=== PATIENT | female | born 1970 | race African-American/Black ===

== ENCOUNTER 2018-08-28 14:58 | Outpatient (CLI) | payer BC ==
--- NOTE | 2018-08-28 15:49 | Mammography Report ---
Bilateral mammogram: No previous studies are available. CAD study utilized. Findings: Bilateral dense breast parenchyma. Focal asymmetry measuring 1 cm in diameter inner posterior right breast dated focal dense asymmetry made posterior left breast. No microcalcifications. Focal asymmetry upper mid right breast. Normal axilla. Impression: Focal asymmetry is like the left breast. Comparison with previous studies is recommended. If previous studies of April the spot compression and sonograph examination advised. BI-RADS CATEGORY: 0 = Needs additional imaging evaluation ACR BI-RADS MAMMOGRAPHIC CODES: 0 = Needs additional imaging evaluation; 1 = Negative; 2 = Benign; 3 = Probably benign; 4 = Suspicious; 5 = Malignant; 6 = Known biopsy-proven malignancy COMMENT: 1. Dense breast tissue, i.e., adenosis, fibrocystic changes, etc., may obscure an underlying neoplasm. 2. Approximately 10% of cancers are not detected with mammography. 3. A negative mammography report should not delay biopsy if a clinically suspicious mass is present. COMMENT: Patient follow-up letters are generated in [employer]. The
== END 2018-08-28 14:59 | disposition home or self-care (01) ==
LOC: MAMMO 14:58
PROVIDERS: ATTEND Internal Medicine
DX: Z12.31 Encounter for screening mammogram for malignant neoplasm of breast (principal)
CPT/HCPCS: 77067

== ENCOUNTER 2018-09-21 14:45 | Outpatient (CLI) | payer BC ==
--- NOTE | 2018-09-21 15:19 | Mammography Report ---
BILATERAL DIGITAL DIAGNOSTIC MAMMOGRAM : 09/21/18 14:45:00 CLINICAL: Recalled for bilateral asymmetries. COMPARISON:09/25/18 screening FINDINGS: Additional bilateral mammographic views were performed and are negative. IMPRESSION: Negative Mammogram. BI-RADS CATEGORY: 1 -- Negative RECOMMENDATION: Routine mammographic screening in one year. ACR BI-RADS MAMMOGRAPHIC CODES: 0 = Needs additional imaging evaluation; 1 = Negative; 2 = Benign; 3 = Probably benign; 4 = Suspicious; 5 = Malignant; 6 = Known biopsy-proven malignancy COMMENT: 1. Dense breast tissue, i.e., adenosis, fibrocystic changes, etc., may obscure an underlying neoplasm. 2. Approximately 10% of cancers are not detected with mammography. 3. A negative mammography report should not delay biopsy if a clinically suspicious mass is present. COMMENT: Patient follow-up letters are generated via our [employer] application.
== END 2018-09-21 14:46 | disposition home or self-care (01) ==
LOC: MAMMO 14:45
PROVIDERS: ATTEND Internal Medicine
DX: R92.8 Other abnormal and inconclusive findings on diagnostic imaging of breast (principal)
CPT/HCPCS: 77066

== ENCOUNTER 2019-09-16 11:17 | Emergency (ER) | payer BC ==
[2019-09-16] MEDS ORDERED: dexAMETHasone 20 MG/5 ML VIAL IV ONE (12:13)
[2019-09-16] MEDS ORDERED: SODIUM CHLORIDE 0.9% 1000 ML 1,000 ML IV ONE (12:13)
[2019-09-16] MEDS ORDERED: diphenhydrAMINE 50 MG/ML VIAL IV ONE ×2 (12:13→14:03)
[2019-09-16] MEDS ORDERED: FAMOTIDINE 20 MG/2 ML INJ IV ONE (12:13)
--- NOTE | 2019-09-16 12:13 | Emergency Department Report ---
Blank Doc - Documentation Documentation: 49-year-old female that presents with generlized rash and itching. This initial assessment/diagnostic orders/clinical plan/treatment(s) is/are subject to change based on patient's health status, clinical progression and re- assessment by fellow clinical providers in the ED. Further treatment and workup at subsequent clinical providers discretion. Patient/guardians urged not to elope from the ED as their condition may be serious if not clinically assessed and managed. Initial orders include: 1- Patient sent to [facility] for further evaluation and treatment 2- treatment IV
--- NOTE | 2019-09-16 13:04 | Emergency Department Report ---
ED Rash HPI - HPI Chief Complaint: Skin Rash Stated Complaint: RASH BROKEN OUT Time Seen by Provider: 09/16/19 12:11 Duration: 1 Day Location: Neck, Abdomen Suspected Cause: Food Rash Symptoms: Yes Itching, No Facial Swelling, No Tongue/Oral Swelling, No Breathing Difficulties, No Choking Sensation, No Wheezing/Dyspnea, No Peeling, No Blistering, No Fever, No Lightheaded, No Malaise, No Myalgias Severity: moderate Other History: This is a 49-year-old female who presents the ED with pruritus and itching started yesterday and has worsened today. 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 ED Review of Systems ROS: Stated complaint: RASH BROKEN OUT Other details as noted in HPI Comment: All other systems reviewed and negative ED Past Medical Hx - Past Medical History Previous Medical History?: No - Surgical History Past Surgical History?: No - Social History Smoking Status: Never Smoker Substance Use Type: None - Medications Home Medications: Home Medications Medication Instructions Recorded Confirmed Last Taken Type Ondansetron [Zofran Odt] 4 mg PO Q6H #7 tab.rapdis 08/21/16 Unknown Rx Azithromycin [Zithromax Z-VALERI] 250 mg PO DAILY #6 tablet 04/10/17 Unknown Rx Benzonatate [Tessalon Perles] 100 mg PO Q8HR #15 capsule 04/10/17 Unknown Rx Fluticasone [Flonase] 1 spray NS QDAY #1 bottle 04/10/17 Unknown Rx Albuterol INH(or & Nicu Only) 2 puff IH Q6H PRN #1 inhalation 06/04/18 Unknown Rx [ProAir HFA Inhaler] Cetirizine HCl [ZyrTEC] 10 mg PO QAM 14 Days #14 capsule 06/04/18 Unknown Rx Fluticasone [Flonase] 1 spray NS QDAY 14 Days #1 bottle 06/04/18 Unknown Rx Ibuprofen [Motrin] 600 mg PO Q8H PRN #12 tablet 06/04/18 Unknown Rx guaiFENesin/CODEINE [Robitussin AC] 10 ml PO QHS PRN #70 oral.liqd 06/04/18 Unknown Rx methylPREDNISolone [Medrol Dose 4 mg PO DAILY #1 tab.ds.pk 06/04/18 Unknown Rx Valeri] Pramoxine HCl/Calamine [Calamine 1 applic TP DAILY #1 lotion 09/16/19 Unknown Rx Medicated Lotion] Triamcinolone 0.1% [Kenalog 0.1% 1 applic TP TID #4 tube 09/16/19 Unknown Rx CREAM] hydrOXYzine HCL [Atarax] 25 mg PO Q6HR PRN #30 tablet 09/16/19 Unknown Rx methylPREDNISolone [Medrol 4MG 4 mg PO DAILY #1 tab.ds.pk 09/16/19 Unknown Rx DOSEPAK (21 tabs)] Rash Exam - Exam General: Vital signs noted. No distress. Alert and acting appropriately. HEENT: No Periorbital Edema, No Conjuctival Injection, No Chemosis, No Perioral Edema, No Tongue Edema, No Uvular Edema, No Compromised Airway, No Drooling Lungs: Yes Good Air Exchange (Normal Breath Sounds), No Wheezes, No Ronchi, No Stridor, No Cough, No Labored Respirations, No Retractions, No Use of Accessory Muscles, No Other Abnormal Lung Sounds Heart: Yes Regular, No Murmur Skin: Yes Urticarial Rash, Yes Maculopapular Rash, Yes Erythema, No Morbilliform rash, No Bulla(e), No Excoriations, No Weeping, No Tenderness, No Edema, No Encrustations, No Other Other: Positive: Abdomen Normal, Neurologic Normal, Musculoskeletal Normal Critical care attestation.: If time is entered above; I have spent that time in minutes in the direct care of this critically ill patient, excluding procedure time. ED Disposition Clinical Impression: Allergic dermatitis, Eczematous dermatitis Disposition: - TO HOME OR SELFCARE Is pt being admited?: No Does the pt Need Aspirin: No Condition: Stable Instructions: Contact Dermatitis (ED), Eczema (ED) Additional Instructions: Make sure to follow up with the primary care physician as discussed. Take all your medications as you've been prescribed. If you have any worsening symptoms or develop new symptoms please return to ED immediately. Prescriptions: hydrOXYzine HCL [Atarax] 25 mg PO Q6HR PRN #30 tablet PRN Reason: Itching Pramoxine HCl/Calamine [Calamine Medicated Lotion] 1 applic TP DAILY #1 lotion Triamcinolone 0.1% [Kenalog 0.1% CREAM] 1 applic TP TID #4 tube methylPREDNISolone [Medrol 4MG DOSEPAK (21 tabs)] 4 mg PO DAILY #1 tab.ds.pk Referrals: JUSTINA MURDOCK MD [Primary Care Provider] - 3-5 Days [facility] [Provider Group] - 3-5 Days Forms: Accompanied Note, Work/School Release Form(ED)
== END 2019-09-16 14:18 | disposition home or self-care (01) ==
LOC: ED 11:17
DX: L23.9 Allergic contact dermatitis, unspecified cause (principal); L30.9 Dermatitis, unspecified
CPT/HCPCS: 96374; 96375; 96376; 99282; J1100; J1200; J7030

== ENCOUNTER 2019-09-18 20:55 | Emergency (ER) | payer BC ==
[2019-09-18 21:22] VITALS: BP 108/63
[2019-09-18] MEDS ORDERED: predniSONE 50 MG TAB PO STA (21:55)
[2019-09-18] MEDS ORDERED: FAMOTIDINE 20 MG TAB PO STA (22:07)
[2019-09-18] MEDS ORDERED: diphenhydrAMINE 25 MG CAP PO STA (22:09)
--- NOTE | 2019-09-18 22:13 | Emergency Department Report ---
ED Allergic Reaction HPI - General Chief complaint: Skin Rash Stated complaint: ALLERGY REACTION/RASH Time Seen by Provider: 09/18/19 21:19 Source: patient Mode of arrival: Ambulatory Limitations: No Limitations - History of Present Illness Initial Comments: 49-year-old female sent emerge department complaining of reemergence of hives to her torso and arms that started a little over a week ago. She initially seen and treated with sometimes triamcinolone and a Medrol Dosepak stay states that her symptoms began to improve but the continuation of the Medrol Dosepak began to be emerge. She did complete the medication as recommended but returns today due to the irritation and irritability of the rash. Reports no known changes to her activities of daily living has a history of eczema but feels it is under control. Reports no fever, chills, sweats no chest pain or palpitation no foreign travel MD Complaint: allergic reaction, hives Symptoms: rash, itching Severity: mild Treatment Prior to Arrival: none (None today but did previously have a pr escription for triamcinolone and Atarax) Previous Allergy History: none - Related Data Previous Rx's Medication Instructions Recorded Last Taken Type Ondansetron [Zofran Odt] 4 mg PO Q6H #7 tab.rapdis 08/21/16 Unknown Rx Azithromycin [Zithromax Z-VALERI] 250 mg PO DAILY #6 tablet 04/10/17 Unknown Rx Benzonatate [Tessalon Perles] 100 mg PO Q8HR #15 capsule 04/10/17 Unknown Rx Fluticasone [Flonase] 1 spray NS QDAY #1 bottle 04/10/17 Unknown Rx Albuterol INH(or & Nicu Only) 2 puff IH Q6H PRN #1 inhalation 06/04/18 Unknown Rx [ProAir HFA Inhaler] Cetirizine HCl [ZyrTEC] 10 mg PO QAM 14 Days #14 capsule 06/04/18 Unknown Rx Fluticasone [Flonase] 1 spray NS QDAY 14 Days #1 bottle 06/04/18 Unknown Rx Ibuprofen [Motrin] 600 mg PO Q8H PRN #12 tablet 06/04/18 Unknown Rx guaiFENesin/CODEINE [Robitussin AC] 10 ml PO QHS PRN #70 oral.liqd 11/29/18 Unknown Rx methylPREDNISolone [Medrol Dose 4 mg PO DAILY #1 tab.ds.pk 06/04/18 Unknown Rx Valeri] Pramoxine HCl/Calamine [Calamine 1 applic TP DAILY #1 lotion 09/16/19 Unknown Rx Medicated Lotion] Triamcinolone 0.1% [Kenalog 0.1% 1 applic TP TID #4 tube 09/16/19 Unknown Rx CREAM] hydrOXYzine HCL [Atarax] 25 mg PO Q6HR PRN #30 tablet 09/16/19 Unknown Rx methylPREDNISolone [Medrol 4MG 4 mg PO DAILY #1 tab.ds.pk 09/16/19 Unknown Rx DOSEPAK (21 tabs)] Betamethasone/Propylene Glyc 1 gm TP BID #50 oint...g. 09/18/19 Unknown Rx [Diprolene 0.05% Ointment] Desloratadine [Clarinex] 5 mg PO DAILY #14 tablet 09/18/19 Unknown Rx hydrOXYzine HCL [Atarax] 25 mg PO Q6HR PRN #20 tablet 09/18/19 Unknown Rx predniSONE [Deltasone] 20 mg PO BID #10 tab 09/18/19 Unknown Rx Allergies Allergy/AdvReac Type Severity Reaction Status Date / Time carrot Allergy Itching Verified 07/24/18 11:17 raw carrots Allergy Swelling Uncoded 07/24/18 11:17 soy milk Allergy Angioedema Uncoded 07/24/18 11:17 ED Review of Systems ROS: Stated complaint: ALLERGY REACTION/RASH Other details as noted in HPI Comment: All other systems reviewed and negative ED Past Medical Hx - Past Medical History Previous Medical History?: No - Surgical History Past Surgical History?: No - Social History Smoking Status: Never Smoker Substance Use Type: None - Medications Home Medications: Home Medications Medication Instructions Recorded Confirmed Last Taken Type Ondansetron [Zofran Odt] 4 mg PO Q6H #7 tab.rapdis 08/21/16 Unknown Rx Azithromycin [Zithromax Z-VALERI] 250 mg PO DAILY #6 tablet 04/10/17 Unknown Rx Benzonatate [Tessalon Perles] 100 mg PO Q8HR #15 capsule 04/10/17 Unknown Rx Fluticasone [Flonase] 1 spray NS QDAY #1 bottle 04/10/17 Unknown Rx Albuterol INH(or & Nicu Only) 2 puff IH Q6H PRN #1 inhalation 06/04/18 Unknown Rx [ProAir HFA Inhaler] Cetirizine HCl [ZyrTEC] 10 mg PO QAM 14 Days #14 capsule 06/04/18 Unknown Rx Fluticasone [Flonase] 1 spray NS QDAY 14 Days #1 bottle 06/04/18 Unknown Rx Ibuprofen [Motrin] 600 mg PO Q8H PRN #12 tablet 06/04/18 Unknown Rx guaiFENesin/CODEINE [Robitussin AC] 10 ml PO QHS PRN #70 oral.liqd 06/04/18 Unknown Rx methylPREDNISolone [Medrol Dose 4 mg PO DAILY #1 tab.ds.pk 06/04/18 Unknown Rx Valeri] Pramoxine HCl/Calamine [Calamine 1 applic TP DAILY #1 lotion 09/16/19 Unknown Rx Medicated Lotion] Triamcinolone 0.1% [Kenalog 0.1% 1 applic TP TID #4 tube 09/16/19 Unknown Rx CREAM] hydrOXYzine HCL [Atarax] 25 mg PO Q6HR PRN #30 tablet 09/16/19 Unknown Rx methylPREDNISolone [Medrol 4MG 4 mg PO DAILY #1 tab.ds.pk 09/16/19 Unknown Rx DOSEPAK (21 tabs)] Betamethasone/Propylene Glyc 1 gm TP BID #50 oint...g. 09/18/19 Unknown Rx [Diprolene 0.05% Ointment] Desloratadine [Clarinex] 5 mg PO DAILY #14 tablet 09/18/19 Unknown Rx hydrOXYzine HCL [Atarax] 25 mg PO Q6HR PRN #20 tablet 09/18/19 Unknown Rx predniSONE [Deltasone] 20 mg PO BID #10 tab 09/18/19 Unknown Rx ED Physical Exam - General Limitations: No Limitations General appearance: alert, in no apparent distress - Head Head exam: Present: atraumatic, normocephalic - Eye Eye exam: Present: normal appearance, PERRL, EOMI Pupils: Present: normal accommodation - ENT ENT exam: Present: mucous membranes moist, other (Airway patent no lip swelling tongue and uvula are midline normal size) - Neck Neck exam: Present: normal inspection - Respiratory Respiratory exam: Present: normal lung sounds bilaterally. Absent: respiratory distress, wheezes, rhonchi, accessory muscle use, decreased breath sounds, prolonged expiratory - Cardiovascular Cardiovascular Exam: Present: regular rate, normal rhythm. Absent: systolic murmur, diastolic murmur, rubs, gallop - GI/Abdominal GI/Abdominal exam: Present: soft, normal bowel sounds - Extremities Exam Extremities exam: Present: normal inspection - Back Exam Back exam: Present: normal inspection. Absent: CVA tenderness (R), CVA tenderness (L) - Neurological Exam Neurological exam: Present: alert, oriented X3, CN II-XII intact, normal gait - Psychiatric Psychiatric exam: Present: normal affect, normal mood. Absent: anxious, flat affect, manic - Skin Skin exam: Present: warm, dry, intact, erythema, urticaria. Absent: rash, diaphoretic, pallor, abrasion, ecchymosis - Expanded Skin Exam Expanded 1 - Urticaria 2 - Urticaria 3 - Urticaria down each arm front and back ED Course Vital Signs 09/18/19 09/18/19 21:20 21:28 Temperature 98.0 F 98.0 F Pulse Rate 91 H 88 Respiratory 18 18 Rate Blood Pressure 108/63 Blood Pressure 108/63 [Right] O2 Sat by Pulse 98 97 Oximetry Critical care attestation.: If time is entered above; I have spent that time in minutes in the direct care of this critically ill patient, excluding procedure time. ED Disposition Clinical Impression: Urticaria, Allergic reaction Disposition: DC-01 TO HOME OR SELFCARE Is pt being admited?: No Does the pt Need Aspirin: No Condition: Stable Instructions: Urticaria (ED), Allergies (ED) Prescriptions: hydrOXYzine HCL [Atarax] 25 mg PO Q6HR PRN #20 tablet PRN Reason: Itching Desloratadine [Clarinex] 5 mg PO DAILY #14 tablet predniSONE [Deltasone] 20 mg PO BID #10 tab Betamethasone/Propylene Glyc [Diprolene 0.05% Ointment] 1 gm TP BID #50 oint...g. Referrals: SANA PENN MD [Referring] - 3-5 Days (Please follow-up with the cooking chef should your symptoms persist) TERRIE MEDLEY MD [Referring] - 3-5 Days (Please follow-up with his cooking chef if your symptoms persist)
== END 2019-09-18 22:36 | disposition home or self-care (01) ==
LOC: ED 20:55
DX: T78.40XA Allergy, unspecified, initial encounter (principal); L50.9 Urticaria, unspecified; Z79.1 Long term (current) use of non-steroidal anti-inflammatories (NSAID); Z79.899 Other long term (current) drug therapy; Z91.011 Allergy to milk products; Z91.018 Allergy to other foods; X58.XXXA Exposure to other specified factors, initial encounter
CPT/HCPCS: 99282; J7512

== ENCOUNTER 2019-09-22 04:23 | Emergency (ER) | payer BC ==
[2019-09-22] MEDS ORDERED: diphenhydrAMINE 50 MG/ML VIAL IV ONE (07:43)
[2019-09-22] MEDS ORDERED: SODIUM CHLORIDE 0.9% 1000 ML 1,000 ML IV ONE (07:43)
[2019-09-22] MEDS ORDERED: dexAMETHasone 20 MG/5 ML VIAL IV ONE (07:43)
--- NOTE | 2019-09-22 08:19 | Emergency Department Report ---
- General Chief complaint: Skin Rash Stated complaint: ALLERGIC REACTION Time Seen by Provider: 09/22/19 07:37 Source: patient Mode of arrival: Ambulatory Limitations: No Limitations - History of Present Illness Initial comments: This is a 49-year-old female nontoxic, well nourished in appearance, no acute signs of distress presents to the ED with c/o of intermittent acute on chronic intermittent rash and itching. Patient states she develops hives to unknown source for several months Patient states it is itching and redness. Patient denies any drooling, hoarseness or facial swelling. Patient denies any trauma. She denies any fever, chills, nausea, vomiting, chest pain, shortness of breath, headache, stiff neck, numbness or tingling. Patient denies any drug allergies. MD complaint: rash -: days(s) Location: generalized Consistency: intermittent Improves with: none Worsens with: none Context: none Associated symptoms: denies other symptoms, itching - Related Data Previous Rx's Medication Instructions Recorded Last Taken Type Ondansetron [Zofran Odt] 4 mg PO Q6H #7 tab.rapdis 08/21/16 Unknown Rx Azithromycin [Zithromax Z-VALERI] 250 mg PO DAILY #6 tablet 04/10/17 Unknown Rx Benzonatate [Tessalon Perles] 100 mg PO Q8HR #15 capsule 04/10/17 Unknown Rx Fluticasone [Flonase] 1 spray NS QDAY #1 bottle 04/10/17 Unknown Rx Albuterol INH(or & Nicu Only) 2 puff IH Q6H PRN #1 inhalation 06/04/18 Unknown Rx [ProAir HFA Inhaler] Cetirizine HCl [ZyrTEC] 10 mg PO QAM 14 Days #14 capsule 06/04/18 Unknown Rx Fluticasone [Flonase] 1 spray NS QDAY 14 Days #1 bottle 06/04/18 Unknown Rx Ibuprofen [Motrin] 600 mg PO Q8H PRN #12 tablet 06/04/18 Unknown Rx guaiFENesin/CODEINE [Robitussin AC] 10 ml PO QHS PRN #70 oral.liqd 06/04/18 Unknown Rx methylPREDNISolone [Medrol Dose 4 mg PO DAILY #1 tab.ds.pk 06/04/18 Unknown Rx Valeri] Pramoxine HCl/Calamine [Calamine 1 applic TP DAILY #1 lotion 09/16/19 Unknown Rx Medicated Lotion] Triamcinolone 0.1% [Kenalog 0.1% 1 applic TP TID #4 tube 09/16/19 Unknown Rx CREAM] hydrOXYzine HCL [Atarax] 25 mg PO Q6HR PRN #30 tablet 09/16/19 Unknown Rx methylPREDNISolone [Medrol 4MG 4 mg PO DAILY #1 tab.ds.pk 09/16/19 Unknown Rx DOSEPAK (21 tabs)] Betamethasone/Propylene Glyc 1 gm TP BID #50 oint...g. 09/18/19 Unknown Rx [Diprolene 0.05% Ointment] Desloratadine [Clarinex] 5 mg PO DAILY #14 tablet 09/18/19 Unknown Rx hydrOXYzine HCL [Atarax] 25 mg PO Q6HR PRN #20 tablet 09/18/19 Unknown Rx predniSONE [Deltasone] 20 mg PO BID #10 tab 09/18/19 Unknown Rx Prednisone [predniSONE 10 mg 10 mg PO .TAPER #1 tab.ds.pk 09/22/19 Unknown Rx (6-Day Pack, 21 Tabs)] diphenhydrAMINE [Benadryl CAP] 25 mg PO Q8H PRN #10 capsule 09/22/19 Unknown Rx Allergies Allergy/AdvReac Type Severity Reaction Status Date / Time carrot Allergy Itching Verified 07/24/18 11:17 raw carrots Allergy Swelling Uncoded 07/24/18 11:17 soy milk Allergy Angioedema Uncoded 07/24/18 11:17 Abscess Boil HPI - HPI Chief Complaint: Skin Rash Stated Complaint: ALLERGIC REACTION Time Seen by Provider: 09/22/19 07:37 Home Medications: Previous Rx's Medication Instructions Recorded Last Taken Type Ondansetron [Zofran Odt] 4 mg PO Q6H #7 tab.rapdis 08/21/16 Unknown Rx Azithromycin [Zithromax Z-VALERI] 250 mg PO DAILY #6 tablet 04/10/17 Unknown Rx Benzonatate [Tessalon Perles] 100 mg PO Q8HR #15 capsule 04/10/17 Unknown Rx Fluticasone [Flonase] 1 spray NS QDAY #1 bottle 04/10/17 Unknown Rx Albuterol INH(or & Nicu Only) 2 puff IH Q6H PRN #1 inhalation 06/04/18 Unknown Rx [ProAir HFA Inhaler] Cetirizine HCl [ZyrTEC] 10 mg PO QAM 14 Days #14 capsule 06/04/18 Unknown Rx Fluticasone [Flonase] 1 spray NS QDAY 14 Days #1 bottle 06/04/18 Unknown Rx Ibuprofen [Motrin] 600 mg PO Q8H PRN #12 tablet 06/04/18 Unknown Rx guaiFENesin/CODEINE [Robitussin AC] 10 ml PO QHS PRN #70 oral.liqd 06/04/18 Unknown Rx methylPREDNISolone [Medrol Dose 4 mg PO DAILY #1 tab.ds.pk 06/04/18 Unknown Rx Valeri] Pramoxine HCl/Calamine [Calamine 1 applic TP DAILY #1 lotion 09/16/19 Unknown Rx Medicated Lotion] Triamcinolone 0.1% [Kenalog 0.1% 1 applic TP TID #4 tube 09/16/19 Unknown Rx CREAM] hydrOXYzine HCL [Atarax] 25 mg PO Q6HR PRN #30 tablet 09/16/19 Unknown Rx methylPREDNISolone [Medrol 4MG 4 mg PO DAILY #1 tab.ds.pk 09/16/19 Unknown Rx DOSEPAK (21 tabs)] Betamethasone/Propylene Glyc 1 gm TP BID #50 oint...g. 09/18/19 Unknown Rx [Diprolene 0.05% Ointment] Desloratadine [Clarinex] 5 mg PO DAILY #14 tablet 09/18/19 Unknown Rx hydrOXYzine HCL [Atarax] 25 mg PO Q6HR PRN #20 tablet 09/18/19 Unknown Rx predniSONE [Deltasone] 20 mg PO BID #10 tab 09/18/19 Unknown Rx Prednisone [predniSONE 10 mg 10 mg PO .TAPER #1 tab.ds.pk 09/22/19 Unknown Rx (6-Day Pack, 21 Tabs)] diphenhydrAMINE [Benadryl CAP] 25 mg PO Q8H PRN #10 capsule 09/22/19 Unknown Rx Allergies/Adverse Reactions: Allergies Allergy/AdvReac Type Severity Reaction Status Date / Time carrot Allergy Itching Verified 07/24/18 11:17 raw carrots Allergy Swelling Uncoded 07/24/18 11:17 soy milk Allergy Angioedema Uncoded 07/24/18 11:17 ED Review of Systems ROS: Stated complaint: ALLERGIC REACTION Other details as noted in HPI Constitutional: denies: chills, fever Eyes: denies: eye pain, eye discharge, vision change ENT: denies: ear pain, throat pain Respiratory: denies: cough, shortness of breath, wheezing Cardiovascular: denies: chest pain, palpitations Endocrine: no symptoms reported Gastrointestinal: denies: abdominal pain, nausea, diarrhea Genitourinary: denies: urgency, dysuria, discharge Musculoskeletal: denies: back pain, joint swelling, arthralgia Skin: rash, pruritus. denies: lesions, change in color, change in hair/nails Neurological: denies: headache, weakness, paresthesias Psychiatric: denies: anxiety, depression Hematological/Lymphatic: denies: easy bleeding, easy bruising ED Past Medical Hx - Past Medical History Previous Medical History?: No - Surgical History Past Surgical History?: No - Social History Smoking Status: Never Smoker Substance Use Type: None - Medications Home Medications: Home Medications Medication Instructions Recorded Confirmed Last Taken Type Ondansetron [Zofran Odt] 4 mg PO Q6H #7 tab.rapdis 08/21/16 Unknown Rx Azithromycin [Zithromax Z-VALERI] 250 mg PO DAILY #6 tablet 04/10/17 Unknown Rx Benzonatate [Tessalon Perles] 100 mg PO Q8HR #15 capsule 04/10/17 Unknown Rx Fluticasone [Flonase] 1 spray NS QDAY #1 bottle 04/10/17 Unknown Rx Albuterol INH(or & Nicu Only) 2 puff IH Q6H PRN #1 inhalation 06/04/18 Unknown Rx [ProAir HFA Inhaler] Cetirizine HCl [ZyrTEC] 10 mg PO QAM 14 Days #14 capsule 06/04/18 Unknown Rx Fluticasone [Flonase] 1 spray NS QDAY 14 Days #1 bottle 06/04/18 Unknown Rx Ibuprofen [Motrin] 600 mg PO Q8H PRN #12 tablet 06/04/18 Unknown Rx guaiFENesin/CODEINE [Robitussin AC] 10 ml PO QHS PRN #70 oral.liqd 11/29/18 Unknown Rx methylPREDNISolone [Medrol Dose 4 mg PO DAILY #1 tab.ds.pk 06/04/18 Unknown Rx Valeri] Pramoxine HCl/Calamine [Calamine 1 applic TP DAILY #1 lotion 09/16/19 Unknown Rx Medicated Lotion] Triamcinolone 0.1% [Kenalog 0.1% 1 applic TP TID #4 tube 09/16/19 Unknown Rx CREAM] hydrOXYzine HCL [Atarax] 25 mg PO Q6HR PRN #30 tablet 09/16/19 Unknown Rx methylPREDNISolone [Medrol 4MG 4 mg PO DAILY #1 tab.ds.pk 09/16/19 Unknown Rx DOSEPAK (21 tabs)] Betamethasone/Propylene Glyc 1 gm TP BID #50 oint...g. 09/18/19 Unknown Rx [Diprolene 0.05% Ointment] Desloratadine [Clarinex] 5 mg PO DAILY #14 tablet 09/18/19 Unknown Rx hydrOXYzine HCL [Atarax] 25 mg PO Q6HR PRN #20 tablet 09/18/19 Unknown Rx predniSONE [Deltasone] 20 mg PO BID #10 tab 09/18/19 Unknown Rx Prednisone [predniSONE 10 mg 10 mg PO .TAPER #1 tab.ds.pk 09/22/19 Unknown Rx (6-Day Pack, 21 Tabs)] diphenhydrAMINE [Benadryl CAP] 25 mg PO Q8H PRN #10 capsule 09/22/19 Unknown Rx ED Physical Exam - General Limitations: No Limitations General appearance: alert, in no apparent distress - Head Head exam: Present: atraumatic, normocephalic - Eye Eye exam: Present: normal appearance - ENT ENT exam: Present: normal exam, normal orophraynx, other (no angioedema noted) - Neck Neck exam: Present: normal inspection, full ROM. Absent: tenderness, meningismus, lymphadenopathy - Respiratory Respiratory exam: Present: normal lung sounds bilaterally. Absent: respiratory distress, wheezes, rales, rhonchi, stridor, chest wall tenderness, accessory muscle use, decreased breath sounds, prolonged expiratory - Cardiovascular Cardiovascular Exam: Present: regular rate, normal rhythm, normal heart sounds. Absent: bradycardia, tachycardia, irregular rhythm, systolic murmur, diastolic murmur, rubs, gallop - Extremities Exam Extremities exam: Present: normal inspection, full ROM - Back Exam Back exam: Present: normal inspection, full ROM. Absent: tenderness, CVA tenderness (R), CVA tenderness (L), muscle spasm, paraspinal tenderness, vertebral tenderness, rash noted - Neurological Exam Neurological exam: Present: alert, oriented X3 - Psychiatric Psychiatric exam: Present: normal affect, normal mood - Skin Skin exam: Present: warm, dry, intact, rash, urticaria. Absent: cyanosis, diaphoretic, erythema, vesicles, petechiae, pallor, abrasion, ecchymosis ED Course Vital Signs 09/22/19 04:33 Temperature 97.9 F Pulse Rate 83 Respiratory 18 Rate Blood Pressure 107/71 O2 Sat by Pulse 99 Oximetry - Reevaluation(s) Reevaluation #1: 09/22/19 08:17 Patient is speaking in full sentences with no signs of distress noted. ED Medical Decision Making - Medical Decision Making This is a 49-year-old female that presents with allergic reaction. Patient is stable was examined by me. There is no facial swelling. No angioedema. There is no cellulitis. No hoarseness. Patient received 1 L normal saline, Benadryl, Decadron, and Pepcid in the ED IV. Patient was instructed not to operate any machinery after discharge due to possible drowsiness of Benadryl. Patient stated that a family member will drive patient home after discharge. Patient is discharged with prednisone and Benadryl. Patient was referred to Follow-up with a primary care doctor in 3-5 days or if symptoms worsen and continue return to emergency room as soon as possible. At time of discharge, the patient does not seem toxic or ill in appearance. No acute signs of distress noted. Patient agrees to discharge treatment plan of care. No further questions noted by the patient. Critical care attestation.: If time is entered above; I have spent that time in minutes in the direct care of this critically ill patient, excluding procedure time. ED Disposition Clinical Impression: Urticaria, Allergic dermatitis Disposition: DC-01 TO HOME OR SELFCARE Is pt being admited?: No Does the pt Need Aspirin: No Condition: Stable Instructions: Urticaria (ED), Diphenhydramine (By mouth) Additional Instructions: Follow-up with a primary care doctor in 3-5 days or if symptoms worsen and cont inue return to emergency room as soon as possible. Prescriptions: diphenhydrAMINE [Benadryl CAP] 25 mg PO Q8H PRN #10 capsule PRN Reason: Itching Prednisone [predniSONE 10 mg (6-Day Pack, 21 Tabs)] 10 mg PO .TAPER #1 tab.ds.pk Referrals: PRIMARY CAREMD [Primary Care Provider] - 3-5 Days LALY KOHLER MD [Staff Physician] - 3-5 Days [facility] [Outside] - 3-5 Days Forms: Work/School Release Form(ED)
[2019-09-22 09:32] VITALS: BP 109/66
== END 2019-09-22 09:33 | disposition home or self-care (01) ==
LOC: ED 04:23
DX: L50.9 Urticaria, unspecified (principal); Z91.018 Allergy to other foods; Z79.899 Other long term (current) drug therapy
CPT/HCPCS: 96374; 96375; 99282; J1100; J1200; J7030

== ENCOUNTER 2019-11-11 08:38 | Outpatient (CLI) | payer BC | END 2019-11-11 08:39 | disposition home or self-care (01) | LOC: MAMMO 08:38 | PROVIDERS: ATTEND Internal Medicine | DX: Z12.31 Encounter for screening mammogram for malignant neoplasm of breast (principal) | CPT/HCPCS: 77067 ==

== ENCOUNTER 2020-09-13 07:14 | Emergency (ER) | payer BC ==
[2020-09-13 07:20] VITALS: BP 105/69
--- NOTE | 2020-09-13 07:26 | Event Note ---
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 Further treatment and workup at subsequent clinical providers discretion. Patient/guardian urged not to elope from the ED as their condition may be serious if not clinically assessed and managed. Initial orders include: labs ua
[2020-09-13 07:51] LABS: Hematocrit 39.7 % (30.3-42.9); Hemoglobin 13.5 gm/dl (10.1-14.3); Mean Corpuscular HGB Conc 34 % (30-34); Mean Corpuscular Volume 94 fl (79-97); Platelet Count 177 K/mm3 (140-440); Red Blood Count 4.23 M/mm3 (3.65-5.03); Red Cell Distribution Width 13.5 % (13.2-15.2)
[2020-09-13 08:11] LABS: Bilirubin,Urine NEG (Negative); Blood,Urine NEG (Negative); Color,Urine Straw (Yellow); Mucus,Urine FEW /HPF; Protein,Urine <15 mg/dL mg/dL (Negative); Urobilinogen,Urine < 2.0 mg/dL (<2.0); WBC,Urine < 1.0 /HPF (0.0-6.0)
[2020-09-13 08:14] LABS: Alanine Aminotransferase 30 units/L (7-56); Blood Urea Nitrogen 11 mg/dL (7-17); Calcium 8.6 mg/dL (8.4-10.2); Hemolysis Index 10
[2020-09-13 08:15] LABS: BUN/Creatinine Ratio 18
[2020-09-13 08:17] LABS: HCG Qualitative,Urine Negative (Negative)
[2020-09-13] MEDS ORDERED: SODIUM CHLORIDE 0.9% 1000 ML 1,000 ML IV ONE (08:21)
[2020-09-13] MEDS ORDERED: ACETAMINOPHEN 325 MG TAB PO ONE (08:22)
--- NOTE | 2020-09-13 08:25 | Emergency Department Report ---
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 She states that she has had 3 loose/watery stools this morning. She states that she had another episode about 1 year ago and she "let it go too far and almost passed out". She seems to be telling me that she was seen here at this facility for the same. However 2 previous visits reviewed 1 year ago appear to be related to an allergic reaction. Patient otherwise denies chronic GI problems. She states that she ate soup yesterday and no one else apparently got sick. She denies fever or chills. She denies abdominal pain. She denies previous abdominal surgery. She is not nauseated and did not vomit. She has had no signs of GI bl eeding. She did mention to me that she has a mild headache. -: Gradual, hour(s) Location: head (Not chief complaint) Associated Symptoms: denies other symptoms Treatments Prior to Arrival: none - Related Data Previous Rx's Medication Instructions Recorded Last Taken Type Ondansetron [Zofran Odt] 4 mg PO Q6H #7 tab.rapdis 08/21/16 Unknown Rx Azithromycin [Zithromax Z-LV] 250 mg PO DAILY #6 tablet 04/10/17 Unknown Rx Benzonatate [Tessalon Perles] 100 mg PO Q8HR #15 capsule 04/10/17 Unknown Rx Fluticasone [Flonase] 1 spray NS QDAY #1 bottle 04/10/17 Unknown Rx Albuterol Mdi (or & Nicu Only) 2 puff IH Q6H PRN #1 inhalation 06/04/18 Unknown Rx [ProAir HFA Inhaler] Cetirizine HCl [ZyrTEC] 10 mg PO QAM 14 Days #14 capsule 06/04/18 Unknown Rx Fluticasone [Flonase] 1 spray NS QDAY 14 Days #1 bottle 06/04/18 Unknown Rx Ibuprofen [Motrin] 600 mg PO Q8H PRN #12 tablet 06/04/18 Unknown Rx guaiFENesin/CODEINE [Robitussin AC] 10 ml PO QHS PRN #70 oral.liqd 06/04/18 Unknown Rx methylPREDNISolone [Medrol Dose 4 mg PO DAILY #1 tab.ds.pk 06/04/18 Unknown Rx Lv] Pramoxine HCl/Calamine [Calamine 1 applic TP DAILY #1 lotion 09/16/19 Unknown Rx Medicated Lotion] Triamcinolone 0.1% [Kenalog 0.1% 1 applic TP TID #4 tube 09/16/19 Unknown Rx CREAM] hydrOXYzine HCL [Atarax] 25 mg PO Q6HR PRN #30 tablet 09/16/19 Unknown Rx methylPREDNISolone [Medrol 4MG 4 mg PO DAILY #1 tab.ds.pk 09/16/19 Unknown Rx DOSEPAK (21 tabs)] Betamethasone/Propylene Glyc 1 gm TP BID #50 oint...g. 09/18/19 Unknown Rx [Diprolene 0.05% Ointment] Desloratadine [Clarinex] 5 mg PO DAILY #14 tablet 09/18/19 Unknown Rx hydrOXYzine HCL [Atarax] 25 mg PO Q6HR PRN #20 tablet 09/18/19 Unknown Rx predniSONE [Deltasone] 20 mg PO BID #10 tab 09/18/19 Unknown Rx Prednisone [predniSONE 10 mg 10 mg PO .TAPER #1 tab.ds.pk 09/22/19 Unknown Rx (6-Day Pack, 21 Tabs)] diphenhydrAMINE [Benadryl CAP] 25 mg PO Q8H PRN #10 capsule 09/22/19 Unknown Rx Diphenoxylate/Atropine [Lomotil] 1 tab PO Q6H #7 tablet 09/13/20 Unknown Rx Allergies Allergy/AdvReac Type Severity Reaction Status Date / Time carrot Allergy Itching Verified 09/13/20 07:16 raw carrots Allergy Swelling Uncoded 07/24/18 11:17 soy milk Allergy Angioedema Uncoded 07/24/18 11:17 ED Review of Systems ROS: Stated complaint: DIARREHA Other details as noted in HPI Constitutional: denies: chills, fever Eyes: denies: eye pain, eye discharge, vision change ENT: denies: ear pain, throat pain Respiratory: denies: cough, shortness of breath, wheezing Cardiovascular: denies: chest pain, palpitations Endocrine: no symptoms reported Gastrointestinal: diarrhea. denies: abdominal pain, nausea, vomiting, constipation, hematemesis, melena, hematochezia Genitourinary: denies: urgency, dysuria, discharge Musculoskeletal: denies: back pain, joint swelling, arthralgia Skin: denies: rash, lesions Neurological: headache. denies: weakness, paresthesias Psychiatric: denies: anxiety, depression Hematological/Lymphatic: denies: easy bleeding, easy bruising ED Past Medical Hx - Past Medical History Previous Medical History?: No - Surgical History Past Surgical History?: No - Social History Smoking Status: Never Smoker Substance Use Type: None - Medications Home Medications: Home Medications Medication Instructions Recorded Confirmed Last Taken Type Ondansetron [Zofran Odt] 4 mg PO Q6H #7 tab.rapdis 08/21/16 Unknown Rx Azithromycin [Zithromax Z-LV] 250 mg PO DAILY #6 tablet 04/10/17 Unknown Rx Benzonatate [Tessalon Perles] 100 mg PO Q8HR #15 capsule 04/10/17 Unknown Rx Fluticasone [Flonase] 1 spray NS QDAY #1 bottle 04/10/17 Unknown Rx Albuterol Mdi (or & Nicu Only) 2 puff IH Q6H PRN #1 inhalation 06/04/18 Unknown Rx [ProAir HFA Inhaler] Cetirizine HCl [ZyrTEC] 10 mg PO QAM 14 Days #14 capsule 06/04/18 Unknown Rx Fluticasone [Flonase] 1 spray NS QDAY 14 Days #1 bottle 06/04/18 Unknown Rx Ibuprofen [Motrin] 600 mg PO Q8H PRN #12 tablet 06/04/18 Unknown Rx guaiFENesin/CODEINE [Robitussin AC] 10 ml PO QHS PRN #70 oral.liqd 06/04/18 Unknown Rx methylPREDNISolone [Medrol Dose 4 mg PO DAILY #1 tab.ds.pk 06/04/18 Unknown Rx Lv] Pramoxine HCl/Calamine [Calamine 1 applic TP DAILY #1 lotion 09/16/19 Unknown Rx Medicated Lotion] Triamcinolone 0.1% [Kenalog 0.1% 1 applic TP TID #4 tube 09/16/19 Unknown Rx CREAM] hydrOXYzine HCL [Atarax] 25 mg PO Q6HR PRN #30 tablet 09/16/19 Unknown Rx methylPREDNISolone [Medrol 4MG 4 mg PO DAILY #1 tab.ds.pk 09/16/19 Unknown Rx DOSEPAK (21 tabs)] Betamethasone/Propylene Glyc 1 gm TP BID #50 oint...g. 09/18/19 Unknown Rx [Diprolene 0.05% Ointment] Desloratadine [Clarinex] 5 mg PO DAILY #14 tablet 09/18/19 Unknown Rx hydrOXYzine HCL [Atarax] 25 mg PO Q6HR PRN #20 tablet 09/18/19 Unknown Rx predniSONE [Deltasone] 20 mg PO BID #10 tab 09/18/19 Unknown Rx Prednisone [predniSONE 10 mg 10 mg PO .TAPER #1 tab.ds.pk 09/22/19 Unknown Rx (6-Day Pack, 21 Tabs)] diphenhydrAMINE [Benadryl CAP] 25 mg PO Q8H PRN #10 capsule 09/22/19 Unknown Rx Diphenoxylate/Atropine [Lomotil] 1 tab PO Q6H #7 tablet 09/13/20 Unknown Rx ED Physical Exam - General Limitations: No Limitations General appearance: alert, in no apparent distress - Head Head exam: Present: atraumatic, normocephalic - Eye Eye exam: Present: normal appearance. Absent: scleral icterus - ENT ENT exam: Present: mucous membranes moist - Neck Neck exam: Present: normal inspection - Respiratory Respiratory exam: Present: normal lung sounds bilaterally. Absent: respiratory distress - Cardiovascular Cardiovascular Exam: Present: regular rate, normal rhythm. Absent: systolic murmur, diastolic murmur, rubs, gallop - GI/Abdominal GI/Abdominal exam: Present: soft, normal bowel sounds. Absent: distended, tenderness, guarding, rebound, rigid - Extremities Exam Extremities exam: Present: normal inspection, normal capillary refill. Absent: pedal edema, joint swelling - Back Exam Back exam: Present: normal inspection - Neurological Exam Neurological exam: Present: alert, oriented X3, CN II-XII intact. Absent: motor sensory deficit - Psychiatric Psychiatric exam: Present: normal affect, normal mood - Skin Skin exam: Present: warm, dry, intact, normal color. Absent: rash ED Course Vital Signs 09/13/20 07:18 Temperature 97.9 F Pulse Rate 79 Respiratory 18 Rate Blood Pressure 105/69 O2 Sat by Pulse 99 Oximetry - Reevaluation(s) Reevaluation #1: Patient had one episode of diarrhea in the emergency department. She states that "I think it is getting better". She is appropriate for outpatient follow- up. 09/13/20 09:39 ED Medical Decision Making - Lab Data Result diagrams: 09/13/20 07:42 09/13/20 07:42 Laboratory Results - last 24 hr 09/13/20 09/13/20 09/13/20 07:42 07:42 Unknown WBC 5.1 RBC 4.23 Hgb 13.5 Hct 39.7 MCV 94 MCH 32 MCHC 34 RDW 13.5 Plt Count 177 [place] % (Auto) [place]ett Feeder Add Manual Diff Complete Total Counted 100 Seg Neuts % (Manual) 61.0 Lymphocytes % (Manual) 29.0 Monocytes % (Manual) 9.0 H Eosinophils % (Manual) 1.0 Nucleated RBC % Not Reportable Seg Neutrophils # Man 3.1 Band Neutrophils # 0.0 Lymphocytes # (Manual) 1.5 Abs React Lymphs (Man) 0.0 Monocytes # (Manual) 0.5 Eosinophils # (Manual) 0.1 Basophils # (Manual) 0.0 Metamyelocytes # 0.0 Myelocytes # 0.0 Promyelocytes # 0.0 Blast Cells # 0.0 WBC Morphology Not Reportable Hypersegmented Neuts Not Reportable Hyposegmented Neuts Not Reportable Hypogranular Neuts Not Reportable Smudge Cells Not Reportable Toxic Granulation Not Reportable Toxic Vacuolation Not Reportable Dohle Bodies Not Reportable Pelger-Huet Anomaly Not Reportable Skye Rods Not Reportable Platelet Estimate Consistent w auto Clumped Platelets Not Reportable Plt Clumps, EDTA Not Reportable Large Platelets Not Reportable Giant Platelets Not Reportable Platelet Satelliting Not Reportable Plt Morphology Comment Not Reportable RBC Morphology Normal Dimorphic RBCs Not Reportable Polychromasia Not Reportable Hypochromasia Not Reportable Poikilocytosis Not Reportable Anisocytosis Not Reportable Microcytosis Not Reportable Macrocytosis Not Reportable Spherocytes Not Reportable Pappenheimer Bodies Not Reportable Sickle Cells Not Reportable Target Cells Not Reportable Tear Drop Cells Not Reportable Ovalocytes Not Reportable Helmet Cells Not Reportable Conn-Hodges Bodies Not Reportable [place] Rings Not Reportable Tor Cells Not Reportable Bite Cells Not Reportable Crenated Cell Not Reportable Elliptocytes Not Reportable Acanthocytes (Spur) Not Reportable Rouleaux Not Reportable Hemoglobin C Crystals Not Reportable Schistocytes Not Reportable Malaria parasites Not Reportable Billy Bodies Not Reportable Hem Pathologist Commnt No Sodium 135 L Potassium 3.8 Chloride 103.2 Carbon Dioxide 21 L Anion Gap 15 BUN 11 Creatinine 0.6 Estimated GFR > 60 BUN/Creatinine Ratio 18 Glucose 97 Calcium 8.6 Total Bilirubin 0.50 AST 40 ALT 30 Alkaline Phosphatase 75 Total Protein 7.1 Albumin 4.0 Albumin/Globulin Ratio 1.3 Lipase 48 Urine Color Straw Urine Turbidity Clear Urine pH 6.0 Ur Specific [place] 1.006 Urine Protein <15 mg/dl Urine Glucose (UA) Neg Urine Ketones Neg Urine Blood Neg Urine Nitrite Neg Urine Bilirubin Neg Urine Urobilinogen < 2.0 Ur Leukocyte Esterase Neg Urine WBC (Auto) < 1.0 Urine RBC (Auto) 1.0 U Epithel Cells (Auto) 1.0 Urine Mucus Few Urine HCG, Qual Negative Critical care attestation.: If time is entered above; I have spent that time in minutes in the direct care of this critically ill patient, excluding procedure time. ED Disposition Clinical Impression: Gastroenteritis Disposition: DC-01 TO HOME OR SELFCARE Is pt being admited?: No Does the pt Need Aspirin: No Condition: Stable Instructions: Viral Gastroenteritis, Adult Additional Instructions: Clear fluids and advance. Rx Lomotil if needed. Follow-up with primary care physician. Return any acute change or problem. Prescriptions: Diphenoxylate/Atropine [Lomotil] 1 tab PO Q6H #7 tablet Forms: Work/School Release Form(ED) Time of Disposition: 09:40
[2020-09-13 08:51] LABS: Total Cells Counted 100
[2020-09-13 08:52] LABS: Platelet Estimate Consistent w Auto; RBC Morphology Normal
== END 2020-09-13 10:00 | disposition home or self-care (01) ==
LOC: ED 07:14
DX: K52.9 Noninfective gastroenteritis and colitis, unspecified (principal); Z91.018 Allergy to other foods; Z79.899 Other long term (current) drug therapy
CPT/HCPCS: 36415; 80053; 81001; 81025; 83690; 85007; 85025; 96360; 99283; J7030

== ENCOUNTER 2020-11-14 14:06 | Outpatient (CLI) | payer BC ==
--- NOTE | 2020-11-14 15:27 | Mammography Report ---
BILATERAL DIGITAL SCREENING MAMMOGRAM WITH CAD HISTORY: Screening mammogram. TECHNIQUE: Routine digital mammographic imaging performed. This examination was interpreted with steven nunn benefit of Computer-aided Detection analysis. COMPARISON: 11/11/2019, 09/21/2018, 08/28/2018. FINDINGS: Breast Density: heterogeneously dense breast parenchymal pattern which somewhat lessens the sensitivi ty of the evaluation. Digital CC and MLO views demonstrate a focal asymmetry in the far posterior left upper inner breast. No suspicious findings within the right breast. IMPRESSION: Left upper inner far posterior breast focal asymmetry for which additional mammographic views and pos sible ultrasound is recommended. BIRADS 0-Incomplete: Needs additional imaging evaluation NOTE: WE WILL RECALL THE PATIENT FOR THIS ADDITIONAL EVALUATION. FURTHER INFORMATION: According to the [employer], yearly mammograms are recommend ed starting at age 40 and continuing as long as a woman is in good health. Clinical Breast Exams shou ld be part of a periodic health exam-about every 3 years for women in their 20s and 30s and every yea r for women 40 and over. Breast self exam is an option for women starting in their 20s. Any breast ch anat noted on a breast self exam should be reported promptly to the patient's healthcare provider. Br east MRI is recommended for women with an approximately 20-25% or greater lifetime risk of breast can cer, including women with a strong family history of breast or ovarian cancer and women who have been treated for Hodgkin's disease. A negative Mammography report should not discourage follow up or biopsy of a clinically significant f inding and/or abnormality. Dense breast tissue may obscure small neoplasms. The patient will be entered into a reminder system with a target due date for the next screening mamm ogram. Signer Name: Shant Contreras MD Signed: 11/14/2020 3:23 PM Workstation Name: [id number]
== END 2020-11-14 14:07 | disposition home or self-care (01) ==
LOC: MAMMO 14:06
PROVIDERS: ATTEND Internal Medicine
DX: Z12.31 Encounter for screening mammogram for malignant neoplasm of breast (principal); N64.89 Other specified disorders of breast
CPT/HCPCS: 77067

== ENCOUNTER 2020-12-08 10:27 | Outpatient (CLI) | payer BC ==
[2020-12-08 12:52] LABS: Basophils # (Auto) 0.1 K/mm3 (0.0-0.1); Basophils % (Auto) 0.8 % (0.0-1.8); Eosinophils # (Auto) 0.2 K/mm3 (0.0-0.4); Eosinophils % (Auto) 3.4 % (0.0-4.3); Hematocrit 41.9 % (30.3-42.9); Hemoglobin 14.1 gm/dl (10.1-14.3); Lymphocytes # (Auto) 2.1 K/mm3 (1.2-5.4); Mean Corpuscular HGB Conc 34 % (30-34); Mean Corpuscular Volume 94 fl (79-97); Monocytes # (Auto) 0.5 K/mm3 (0.0-0.8); Platelet Count 224 K/mm3 (140-440); Red Blood Count 4.48 M/mm3 (3.65-5.03); Red Cell Distribution Width 13.7 % (13.2-15.2)
--- NOTE | 2020-12-08 13:28 | Ultrasound Report ---
LEFT DIGITAL DIAGNOSTIC MAMMOGRAM WITH CAD , 12/08/2020 LEFT LIMITED BREAST ULTRASOUND CLINICAL INFORMATION / INDICATION: Abnormal screening mammogram. Screening recall of the left breast for new density. TECHNIQUE: Digital left mammographic imaging was performed. Spot compression views were obtained. [place] ited ultrasound was performed. This examination was interpreted with the benefit of Computer-Aided De tection (CAD) analysis. COMPARISON: Screening mammogram, 08/28/2018, 11/11/2019, 11/14/2020 and 12/08/2020 FINDINGS: Breast Density: The breasts are heterogeneously dense, which may obscure small masses. MAMMOGRAPHIC FINDINGS: Spot compression views of the upper inner right breast were performed which de monstrates a persistent vague 2.5 cm density in the far posterior left breast at the 10:00 position. ULTRASOUND FINDINGS: Targeted ultrasound evaluation was performed of the area of interest. Sonograp hic evaluation of the upper inner left breast demonstrates no evidence of suspicious solid mass or sh adowing. IMPRESSION: 1. Persistent asymmetric density in the upper inner far posterior left breast. There is no sonographi c correlate. Although this may simply represent asymmetric fibroglandular tissue, breast MRI is recom mended to further evaluate this finding. Follow up recommendation: Breast MRI BI-RADS Category 0: Incomplete. Needs additional imaging evaluation and/or prior mammograms for deep steele. A "normal" or negative report should not discourage follow up or biopsy of a clinically significant f inding. A written summary of these findings will be mailed to the patient. The patient will be entered into a mammography reporting system which will generate a reminder letter for the patient's next appointmen t at the appropriate interval. According to the [employer], yearly mammograms are recommended starting at age 40 and continuing as long as a woman is in good health. Breast MRI is recommended for women with an ana roximately 20-25% or greater lifetime risk of breast cancer, including women with a strong family his tory of breast or ovarian cancer and women who have been treated for Hodgkin's disease. Signer Name: Janneth Tran MD Signed: 12/08/2020 1:24 PM Workstation Name: [id number]
[2020-12-08 13:52] LABS: Alanine Aminotransferase 23 units/L (7-56); Albumin 4.9 g/dL (3.9-5); Blood Urea Nitrogen 11 mg/dL (7-17); Calcium 8.8 mg/dL (8.4-10.2); Chol/HDL Ratio 2.58 %; HDL Cholesterol 84 mg/dL (40-59); Hemolysis Index 2; LDL Cholesterol,Direct 136 mg/dL (50-130)
[2020-12-08 14:03] LABS: BUN/Creatinine Ratio 16
[2020-12-12 13:10] LABS: Vitamin D, 25-OH, D2 <4 ng/mL
== END 2020-12-08 10:28 | disposition home or self-care (01) ==
LOC: MAMMO 10:27
PROVIDERS: ATTEND Internal Medicine
DX: R92.8 Other abnormal and inconclusive findings on diagnostic imaging of breast (principal); Z13.1 Encounter for screening for diabetes mellitus; Z00.00 Encounter for general adult medical examination without abnormal findings
CPT/HCPCS: 36415; 80053; 80061; 82306; 83036; 84443; 85025

== ENCOUNTER 2021-01-16 10:42 | Outpatient (CLI) | payer BC ==
--- NOTE | 2021-01-17 09:46 | Magnetic Resonance Report ---
MRI BREAST BILATERAL WITH AND WITHOUT CONTRAST, 01/16/2021 CLINICAL INFORMATION / INDICATION: UNSPECIFIED LUMP IN RIGHT BREAST, UNSPECIFIED QUAD. Indeterminate left breast density without a sonographic correlate. TECHNIQUE: Axial T1 and T2-weighted fat sat images were obtained precontrast. Gadolinium-based contra st was injected intravenously and serial axial T1 weighted images with fat saturation were obtained. 3-D MIP projections, kinetic analysis, and subtraction imaging were utilized to evaluate. A dedicated 8-channel breast coil was used for image acquisition. COMPARISON: Diagnostic left mammogram and left breast ultrasound from 12/08/2020. Screening mammogram f rom 11/14/2020. FINDINGS: BREAST DENSITY: Heterogeneously dense. BACKGROUND ENHANCEMENT: Moderate background enhancement within both breasts. RIGHT BREAST: No dominant mass or suspicious area of enhancement in the right breast. Along the 12:00 position middle depth is a simple ovoid cyst measuring up to 1.4 cm. LEFT BREAST: No dominant mass or suspicious area of enhancement in the left breast. No suspicious fin ding is seen to correlate with the previously described posterior upper inner density. There is a rou nd cyst located anteriorly and centrally at the level of the nipple measuring 1.0 x 0.9 cm without denson spicious features. AXILLAE: No pathologically enlarged axillary lymph nodes. ADDITIONAL FINDINGS: Limited imaging of the thorax and upper abdomen demonstrates no focal abnormalit y. IMPRESSION: 1. No MRI evidence of malignancy. No suspicious finding is seen to correlate with the recently descri bed left breast density. The finding is favored to represent asymmetric glandular tissue. Continued a nnual screening mammography is recommended. Follow up recommendation: Back to schedule. BI-RADS Category 2: Benign. Signer Name: Boom Resendez MD Signed: 01/17/2021 9:42 AM Workstation Name: [id number]
== END 2021-01-16 10:43 | disposition home or self-care (01) ==
LOC: SPVIMAG 10:42
PROVIDERS: ATTEND Internal Medicine
DX: N60.01 Solitary cyst of right breast (principal); N63.10 Unspecified lump in the right breast, unspecified quadrant; N64.89 Other specified disorders of breast
CPT/HCPCS: A9575; C8908; 77049

== ENCOUNTER 2021-11-12 00:51 | Emergency (ER) | payer BC ==
[2021-11-12] MEDS ORDERED: FAMOTIDINE 20 MG TAB PO ONE ×2 (03:53→06:50)
[2021-11-12] MEDS ORDERED: diphenhydrAMINE 25 MG CAP PO ONE ×2 (03:53→06:50)
[2021-11-12] MEDS ORDERED: predniSONE 20 MG TAB PO ONE ×2 (03:53→06:50)
--- NOTE | 2021-11-12 04:45 | Emergency Department Report ---
ED Allergic Reaction HPI - General Chief complaint: Skin Rash Stated complaint: ALLERGY/HIVES Source: patient Mode of arrival: Ambulatory Limitations: No Limitations - History of Present Illness Initial Comments: Patient is an 51-year-old female with no past medical history who presents to the ED with complaint of acute onset persistent intermittent itchy erythematous maculopapular urticarial rashes for the last 3 days. Patient states that she has been taking Benadryl as needed with no relief. Patient states that she may have consumed food with bananas which she is allergic to. Patient denies swollen lips or tongue, fever, chills, dysphagia, dysphonia, wheezing, cough, chest tightness, shortness of breath, nausea and vomiting and diarrhea or abdominal pain. MD Complaint: allergic reaction, hives, facial swelling -: Sudden, days(s) (3) Exposure: food Symptoms: rash, itching. denies: facial swelling, lip swelling, difficulty swallowing, difficulty breathing, orolingual swelling, hoarseness, syncopy, dizziness, nausea, vomiting, other, abdominal pain Severity: moderate Treatment Prior to Arrival: benadryl Previous Allergy History: none - Related Data Previous Rx's Medication Instructions Recorded Last Taken Type Ondansetron [Zofran Odt] 4 mg PO Q6H #7 tab.rapdis 08/21/16 Unknown Rx Azithromycin [Zithromax Z-VALERI] 250 mg PO DAILY #6 tablet 04/10/17 Unknown Rx Benzonatate [Tessalon Perles] 100 mg PO Q8HR #15 capsule 04/10/17 Unknown Rx Fluticasone [Flonase] 1 spray NS QDAY #1 bottle 04/10/17 Unknown Rx Albuterol Mdi (or & Nicu Only) 2 puff IH Q6H PRN #1 inhalation 06/04/18 Unknown Rx [ProAir HFA Inhaler] Cetirizine HCl [ZyrTEC] 10 mg PO QAM 14 Days #14 capsule 06/04/18 Unknown Rx Fluticasone [Flonase] 1 spray NS QDAY 14 Days #1 bottle 06/04/18 Unknown Rx Ibuprofen [Motrin] 600 mg PO Q8H PRN #12 tablet 06/04/18 Unknown Rx guaiFENesin/CODEINE [Robitussin AC] 10 ml PO QHS PRN #70 oral.liqd 06/04/18 Unknown Rx methylPREDNISolone [Medrol Dose 4 mg PO DAILY #1 tab.ds.pk 06/04/18 Unknown Rx Valeri] Pramoxine HCl/Calamine [Calamine 1 applic TP DAILY #1 lotion 09/16/19 Unknown Rx Medicated Lotion] Triamcinolone 0.1% [Kenalog 0.1% 1 applic TP TID #4 tube 09/16/19 Unknown Rx CREAM] Betamethasone/Propylene Glyc 1 gm TP BID #50 oint...g. 09/18/19 Unknown Rx [Diprolene 0.05% Ointment] Desloratadine [Clarinex] 5 mg PO DAILY #14 tablet 09/18/19 Unknown Rx hydrOXYzine HCL [Atarax] 25 mg PO Q6HR PRN #20 tablet 09/18/19 Unknown Rx predniSONE [Deltasone] 20 mg PO BID #10 tab 09/18/19 Unknown Rx Prednisone [predniSONE 10 mg 10 mg PO .TAPER #1 tab.ds.pk 09/22/19 Unknown Rx (6-Day Pack, 21 Tabs)] diphenhydrAMINE [Benadryl CAP] 25 mg PO Q8H PRN #10 capsule 09/22/19 Unknown Rx Diphenoxylate/Atropine [Lomotil] 1 tab PO Q6H #7 tablet 09/13/20 Unknown Rx Famotidine [Pepcid] 20 mg PO BID #60 tablet 11/12/21 Unknown Rx hydrOXYzine HCL [Atarax] 25 mg PO Q6HR PRN #30 tablet 11/12/21 Unknown Rx methylPREDNISolone [Medrol 4MG 4 mg PO DAILY #1 tab.ds.pk 11/12/21 Unknown Rx DOSEPAK (21 tabs)] Allergies Allergy/AdvReac Type Severity Reaction Status Date / Time carrot Allergy Itching Verified 09/13/20 07:16 raw carrots Allergy Swelling Uncoded 07/24/18 11:17 soy milk Allergy Angioedema Uncoded 07/24/18 11:17 ED Review of Systems ROS: Stated complaint: ALLERGY/HIVES Other details as noted in HPI Constitutional: denies: chills, fever Eyes: denies: eye pain, eye discharge, vision change ENT: denies: ear pain, throat pain Respiratory: denies: cough, shortness of breath, wheezing Cardiovascular: denies: chest pain, palpitations, edema, syncope, paroxysmal nocturnal dyspnea Endocrine: no symptoms reported Gastrointestinal: denies: abdominal pain, nausea, vomiting, diarrhea Genitourinary: denies: urgency, dysuria, discharge Musculoskeletal: denies: back pain, joint swelling, arthralgia Skin: rash (Diffuse itchy erythematous maculopapular rashes), change in color, pruritus. denies: lesions Neurological: denies: headache, weakness, paresthesias Psychiatric: denies: anxiety, depression Hematological/Lymphatic: denies: easy bleeding, easy bruising ED Past Medical Hx - Social History Smoking Status: Never Smoker Substance Use Type: None - Medications Home Medications: Home Medications Medication Instructions Recorded Confirmed Last Taken Type Ondansetron [Zofran Odt] 4 mg PO Q6H #7 tab.rapdis 08/21/16 Unknown Rx Azithromycin [Zithromax Z-VALERI] 250 mg PO DAILY #6 tablet 04/10/17 Unknown Rx Benzonatate [Tessalon Perles] 100 mg PO Q8HR #15 capsule 04/10/17 Unknown Rx Fluticasone [Flonase] 1 spray NS QDAY #1 bottle 04/10/17 Unknown Rx Albuterol Mdi (or & Nicu Only) 2 puff IH Q6H PRN #1 inhalation 06/04/18 Unknown Rx [ProAir HFA Inhaler] Cetirizine HCl [ZyrTEC] 10 mg PO QAM 14 Days #14 capsule 06/04/18 Unknown Rx Fluticasone [Flonase] 1 spray NS QDAY 14 Days #1 bottle 06/04/18 Unknown Rx Ibuprofen [Motrin] 600 mg PO Q8H PRN #12 tablet 06/04/18 Unknown Rx guaiFENesin/CODEINE [Robitussin AC] 10 ml PO QHS PRN #70 oral.liqd 06/04/18 Unknown Rx methylPREDNISolone [Medrol Dose 4 mg PO DAILY #1 tab.ds.pk 06/04/18 Unknown Rx Valeri] Pramoxine HCl/Calamine [Calamine 1 applic TP DAILY #1 lotion 09/16/19 Unknown Rx Medicated Lotion] Triamcinolone 0.1% [Kenalog 0.1% 1 applic TP TID #4 tube 09/16/19 Unknown Rx CREAM] Betamethasone/Propylene Glyc 1 gm TP BID #50 oint...g. 09/18/19 Unknown Rx [Diprolene 0.05% Ointment] Desloratadine [Clarinex] 5 mg PO DAILY #14 tablet 09/18/19 Unknown Rx hydrOXYzine HCL [Atarax] 25 mg PO Q6HR PRN #20 tablet 09/18/19 Unknown Rx predniSONE [Deltasone] 20 mg PO BID #10 tab 09/18/19 Unknown Rx Prednisone [predniSONE 10 mg 10 mg PO .TAPER #1 tab.ds.pk 09/22/19 Unknown Rx (6-Day Pack, 21 Tabs)] diphenhydrAMINE [Benadryl CAP] 25 mg PO Q8H PRN #10 capsule 09/22/19 Unknown Rx Diphenoxylate/Atropine [Lomotil] 1 tab PO Q6H #7 tablet 09/13/20 Unknown Rx Famotidine [Pepcid] 20 mg PO BID #60 tablet 11/12/21 Unknown Rx hydrOXYzine HCL [Atarax] 25 mg PO Q6HR PRN #30 tablet 11/12/21 Unknown Rx methylPREDNISolone [Medrol 4MG 4 mg PO DAILY #1 tab.ds.pk 11/12/21 Unknown Rx DOSEPAK (21 tabs)] ED Physical Exam - General Limitations: No Limitations General appearance: alert, in no apparent distress - Head Head exam: Present: atraumatic, normocephalic, normal inspection - Eye Eye exam: Present: normal appearance, PERRL, EOMI Pupils: Present: normal accommodation - ENT ENT exam: Present: normal exam, normal orophraynx, mucous membranes moist, TM's normal bilaterally, normal external ear exam - Neck Neck exam: Present: normal inspection, full ROM - Respiratory Respiratory exam: Present: normal lung sounds bilaterally. Absent: respiratory distress, wheezes, rhonchi, chest wall tenderness, accessory muscle use, decreased breath sounds, prolonged expiratory - Cardiovascular Cardiovascular Exam: Present: regular rate, normal rhythm, normal heart sounds. Absent: systolic murmur, diastolic murmur, rubs, gallop - GI/Abdominal GI/Abdominal exam: Present: soft, normal bowel sounds. Absent: distended, tenderness, guarding, hyperactive bowel sounds, hypoactive bowel sounds, organomegaly - Extremities Exam Extremities exam: Present: normal inspection, full ROM, normal capillary refill. Absent: tenderness, pedal edema, joint swelling - Back Exam Back exam: Present: normal inspection, full ROM. Absent: tenderness, CVA tenderness (R), CVA tenderness (L), muscle spasm, paraspinal tenderness - Neurological Exam Neurological exam: Present: alert, oriented X3, CN II-XII intact, normal gait, reflexes normal - Psychiatric Psychiatric exam: Present: normal affect, normal mood - Skin Skin exam: Present: warm, dry, intact, rash (Diffuse erythematous maculopapular urticarial rashes diffusely), erythema, urticaria, vesicles, ecchymosis. Absent: normal color ED Course Vital Signs 11/12/21 00:54 Temperature 98.0 F Pulse Rate 88 Respiratory 18 Rate Blood Pressure 123/76 O2 Sat by Pulse 99 Oximetry ED Medical Decision Making - Medical Decision Making This is an 51-year-old female with no past medical history who presents to the ED with complaint of acute onset persistent intermittent itchy erythematous maculopapular urticarial rashes for the last 3 days. Patient states that she has been taking Benadryl as needed with no relief. Patient states that she may have consumed food with bananas which she is allergic to. In the ED, patient is alert and oriented x3 and is not in any distress. Patient was treated for acute allergic reaction with prednisone, Pepcid and Benadryl. On reevaluation, patient's symptoms resolved with medication and will discharge home on medications. Patient was discharged home on medications and advised to follow- up with her primary care physician in 7 to 10 days for reevaluation. Patient advised return to the ED immediately if symptoms get worse. - Differential Diagnosis Allergic reaction; hives, dermatitis Critical care attestation.: If time is entered above; I have spent that time in minutes in the direct care of this critically ill patient, excluding procedure time. ED Disposition Clinical Impression: Itching with irritation, Acute urticaria Acute allergic reaction Qualifiers: Encounter type: initial encounter Qualified Code(s): T78.40XA - Allergy, unspecified, initial encounter Disposition: HOME / SELF CARE / HOMELESS Is pt being admited?: No Does the pt Need Aspirin: No Condition: Stable Instructions: Rash, Adult, [id number], Hives, [id number], Allergies, Adult, [id number] Additional Instructions: Take medication with food, drink plenty of fluids and follow-up with your primary care physician in 7 to 10 days for reevaluation. Return to the ED i mmediately if symptoms get worse. Prescriptions: hydrOXYzine HCL [Atarax] 25 mg PO Q6HR PRN #30 tablet PRN Reason: Itching methylPREDNISolone [Medrol 4MG DOSEPAK (21 tabs)] 4 mg PO DAILY #1 tab.ds.pk Famotidine [Pepcid] 20 mg PO BID #60 tablet Referrals: LALY KOHLER MD [Primary Care Provider] - 3-5 Days Forms: Work/School Release Form(ED) Time of Disposition: 04:46 Print Language: WELSH
[2021-11-12 07:31] VITALS: BP 122/77
== END 2021-11-12 07:30 | disposition home or self-care (01) ==
LOC: ED 00:51
DX: T78.40XA Allergy, unspecified, initial encounter (principal); L50.9 Urticaria, unspecified; L29.9 Pruritus, unspecified; Z79.899 Other long term (current) drug therapy; Z91.02 Food additives allergy status; Z91.011 Allergy to milk products; X58.XXXA Exposure to other specified factors, initial encounter
CPT/HCPCS: 99282

== ENCOUNTER 2021-11-22 07:50 | Emergency (ER) | payer BC ==
[2021-11-22 07:58] VITALS: BP 113/58
--- NOTE | 2021-11-22 08:28 | Emergency Department Report ---
HPI - General Chief Complaint: Allergic Reaction PUI?: No Time Seen by Provider: 11/22/21 08:13 - HPI HPI: Patient is a 51-year-old employee of [employer]. She works in [employer]. She is known to us that she is presented to the ER with her allergic responses in the past. She was recently seen and given steroids, Benadryl and Pepcid. She has completed the medications and now her allergic reaction is back. She is waiting for her PCP appointment: She states that her PCP will give her referral to an operational risk manager. Patient does have acute on chronic allergies and has not followed up for her allergy treatment. She is not sure what the trigger is. She comes to the ER today with a rash. Her upper lip is mildly swollen. Her vital signs are stable. She is oxygenating. She has no hypotension or tachycardia. Her ABCs are intact. She is talking in full sentences without shortness of breath. She is also talking in full sentences without shortness of breath after ambulation to the room in [employer]. She denies chest pain or shortness of breath. ED Past Medical Hx - Past Medical History Previous Medical History?: Yes Additional medical history: Acute on chronic allergies - Surgical History Past Surgical History?: No - Family History Family history: no significant - Social History Smoking Status: Never Smoker Substance Use Type: None - Medications Home Medications: Home Medications Medication Instructions Recorded Confirmed Last Taken Type Albuterol Mdi (or & Nicu Only) 2 puff IH Q6H PRN #1 inhalation 06/04/18 Unknown Rx [ProAir HFA Inhaler] Pramoxine HCl/Calamine [Calamine 1 applic TP DAILY #1 lotion 09/16/19 Unknown Rx Medicated Lotion] Triamcinolone 0.1% [Kenalog 0.1% 1 applic TP TID #4 tube 09/16/19 Unknown Rx CREAM] Betamethasone/Propylene Glyc 1 gm TP BID #50 oint...g. 09/18/19 Unknown Rx [Diprolene 0.05% Ointment] Diphenoxylate/Atropine [Lomotil] 1 tab PO Q6H #7 tablet 09/13/20 Unknown Rx Cetirizine HCl [ZyrTEC] 10 mg PO DAILY #30 capsule 11/22/21 Unknown Rx Famotidine [Pepcid] 20 mg PO DAILY #30 tablet 11/22/21 Unknown Rx diphenhydrAMINE [Benadryl CAP] 25 mg PO Q8HR PRN #20 capsule 11/22/21 Unknown Rx methylPREDNISolone [Medrol 4MG 4 mg PO FS #1 tab.ds.pk 11/22/21 Unknown Rx DOSEPAK (21 tabs)] ED Review of Systems ROS: Stated complaint: ALLERGIC REACTION/HIVES Other details as noted in HPI Comment: All other systems reviewed and negative Physical Exam - Physical Exam Vital Signs: Vital Signs 11/22/21 07:54 Temperature 97.8 F Pulse Rate 83 Respiratory 18 Rate Blood Pressure 113/58 O2 Sat by Pulse 99 Oximetry General: ABCs intact. Mild swelling upper lip. No pharyngeal swelling. Taking p.o. Controlling secretions. No abscess. No lymphadenopathy. S1-S2 Lungs clear to auscultation Abdomen soft nontender A urticarial rash consistent with that of hives, generalized, with itching. No evidence of secondary infection. No oral or conjunctival lesions. No systemic symptoms on review of systems ED Course Vital Signs 11/22/21 07:54 Temperature 97.8 F Pulse Rate 83 Respiratory 18 Rate Blood Pressure 113/58 O2 Sat by Pulse 99 Oximetry ED Medical Decision Making - Medical Decision Making Vital Signs 11/22/21 07:54 Temperature 97.8 F Pulse Rate 83 Respiratory 18 Rate Blood Pressure 113/58 O2 Sat by Pulse 99 Oximetry Medicated with Depo-Medrol in the emergency room. I had a long discussion with patient about chronic use of steroids and its effect on the adrenal system. I have encouraged her to call her PCP today and move her appointment up so that she can get in with her operational risk manager sooner. She verbalizes understanding. On discharge exam patient remains with ABCs intact. Taking p.o. No respiratory insufficiency. No shortness of breath. No chest pain. Patient being discharged home with discharge plan of care including diet, activity, medications and follow-up. She verbalizes understanding of plan of care - Differential Diagnosis Acute on chronic allergies Critical care attestation.: If time is entered above; I have spent that time in minutes in the direct care of this critically ill patient, excluding procedure time. ED Disposition Clinical Impression: Acute urticaria, Itching with irritation Acute allergic reaction Qualifiers: Encounter type: subsequent encounter Qualified Code(s): T78.40XD - Allergy, unspecified, subsequent encounter Disposition: HOME / SELF CARE / HOMELESS Is pt being admited?: No Does the pt Need Aspirin: No Condition: Stable Instructions: Allergies, Adult, [id number] Additional Instructions: Call your PCP today to get your appointment moved up. Medications as ordered today Diet and activity as tolerated Prescriptions: diphenhydrAMINE [Benadryl CAP] 25 mg PO Q8HR PRN #20 capsule PRN Reason: Itching methylPREDNISolone [Medrol 4MG DOSEPAK (21 tabs)] 4 mg PO FS #1 tab.ds.pk Famotidine [Pepcid] 20 mg PO DAILY #30 tablet Cetirizine HCl [ZyrTEC] 10 mg PO DAILY #30 capsule Referrals: LALY KOHLER MD [Staff Physician] - 3-5 Days Forms: Work/School Release Form(ED) Time of Disposition: 08:53
[2021-11-22] MEDS ORDERED: methylPREDNISolone ACETATE 80 MG/1 ML INJ IM ONE (08:29)
== END 2021-11-22 09:40 | disposition home or self-care (01) ==
LOC: ED 07:50 → EEVIPCON 07:50 → ED 09:40
DX: L50.9 Urticaria, unspecified (principal); L29.9 Pruritus, unspecified; T78.40XA Allergy, unspecified, initial encounter; X58.XXXA Exposure to other specified factors, initial encounter
CPT/HCPCS: 96372; 99282; J1040

== ENCOUNTER 2021-12-24 10:10 | Outpatient (CLI) | payer BC ==
[2021-12-24 13:03] LABS: Erythrocyte Sedimentation Rate 46 mm/Hr (0-20)
[2021-12-24 13:05] LABS: Red Blood Count 4.23 M/mm3 (3.65-5.03)
[2021-12-24 13:06] LABS: Basophils % (Auto) 0.4 % (0.0-1.8); Eosinophils % (Auto) 3.3 % (0.0-4.3); Hematocrit 39.8 % (30.3-42.9); Hemoglobin 13.2 gm/dl (10.1-14.3); Lymphocytes % (Auto) 30.9 % (13.4-35.0); Mean Corpuscular HGB Conc 33 % (30-34); Mean Corpuscular Volume 94 fl (79-97); Monocytes # (Auto) 0.5 K/mm3 (0.0-0.8); Monocytes % (Auto) 7.7 % (0.0-7.3); Platelet Count 250 K/mm3 (140-440); Red Cell Distribution Width 13.5 % (13.2-15.2)
[2021-12-24 13:07] LABS: Eosinophils # (Auto) 0.2 K/mm3 (0.0-0.4)
[2021-12-24 14:26] LABS: Alanine Aminotransferase 17 units/L (7-56); Albumin 4.8 g/dL (3.9-5); Blood Urea Nitrogen 12 mg/dL (7-17); Calcium 9.2 mg/dL (8.4-10.2); Chol/HDL Ratio 2.76 %; HDL Cholesterol 82 mg/dL (40-59); Hemolysis Index 12; LDL Cholesterol,Direct 134 mg/dL (50-130)
[2021-12-24 14:31] LABS: BUN/Creatinine Ratio 17
== END 2021-12-24 10:11 | disposition home or self-care (01) ==
LOC: LAB 10:10
PROVIDERS: ATTEND Internal Medicine
DX: E55.9 Vitamin D deficiency, unspecified (principal); E78.5 Hyperlipidemia, unspecified
CPT/HCPCS: 36415; 80053; 80061; 82306; 84443; 85025; 85652; 86038; 86160

== ENCOUNTER 2021-12-31 09:38 | Outpatient (CLI) | payer BC ==
--- NOTE | 2022-01-01 08:45 | Mammography Report ---
DIGITAL SCREENING MAMMOGRAM WITH CAD, 12/31/2021 CLINICAL INFORMATION / INDICATION: Routine screening mammography. TECHNIQUE: Digital bilateral 2D mammography was obtained in the craniocaudal and mediolateral obliqu e projections. This examination was interpreted with the benefit of Computer-Aided Detection analysis . COMPARISON: 12/08/2020, 11/14/2020, 11/11/2019, 08/28/2018 FINDINGS: Breast Density: The breasts are heterogeneously dense, which may obscure small masses. Right breast: There is a new 2.3 cm round density at the 11-12:00 position middle depth. Left breast: No dominant mass, suspicious calcifications, or architectural distortion in the left royce ast. IMPRESSION: 1. New right breast density at the 11-12:00 position which will require additional evaluation with [facility] breast ultrasound and possible additional mammographic views. Follow up recommendation: Ultrasound BI-RADS Category 0: INCOMPLETE. Needs additional imaging evaluation and/or prior mammograms for deep rison. A "normal" or negative report should not discourage follow up or biopsy of a clinically significant f inding. A written summary of these findings will be mailed to the patient. The patient will be entered into a mammography reporting system which will generate a reminder letter for the patient's next appointmen t at the appropriate interval. The [employer] recommends yearly mammograms starting at age 40 and continuing as l sugey as a woman is in good health. Breast MRI is recommended for women with an approximate 20-25% or greater lifetime risk of breast cancer, including women with a strong family history of breast or ova miranda cancer or who have been treated for Hodgkin's disease. Signer Name: Janneth Tran MD Signed: 01/01/2022 8:41 AM Workstation Name: [id number]
== END 2021-12-31 09:39 | disposition home or self-care (01) ==
LOC: MAMMO 09:38
PROVIDERS: ATTEND Internal Medicine
DX: Z12.31 Encounter for screening mammogram for malignant neoplasm of breast (principal)
CPT/HCPCS: 77067

== ENCOUNTER 2022-01-17 11:03 | Outpatient (CLI) | payer BC ==
--- NOTE | 2022-01-17 11:51 | Ultrasound Report ---
ULTRASOUND BREAST RIGHT LIMITED, 01/17/2022 CLINICAL INFORMATION / INDICATION: Abnormal screening mammogram TECHNIQUE: Targeted ultrasound evaluation was performed of the area of interest. COMPARISON: Screening mammography 12/31/2021 FINDINGS: In the 11:00 position, 4 cm from the nipple, corresponding to the radiographic density, a 2 .5 cm benign simple cyst is noted. Incidental note is made of another benign cyst in the 12:00 positi on centrally measuring 8 mm. No solid masses are seen. No suspicious lesions are noted. IMPRESSION: Radiographic abnormality is a benign simple cyst Follow up recommendation: Routine yearly screening mammogram. BI-RADS Category 2: BENIGN. A normal or "negative" report should not preclude biopsy or follow-up of a clinically suspicious find ing. Signer Name: Son Cortez MD Signed: 01/17/2022 11:46 AM Workstation Name: [email or web address]
== END 2022-01-17 11:04 | disposition home or self-care (01) ==
LOC: US 11:03
PROVIDERS: ATTEND Internal Medicine
DX: N60.01 Solitary cyst of right breast (principal)

== ENCOUNTER 2022-03-12 11:30 | Day surgery (SDC) | payer BC ==
[~2022-03-12 11:30] MED LIST: SODIUM CHLORIDE 0.9% 1000 ML 1,000 ML IV SCH
[2022-03-12] MEDS ORDERED: propofoL 200 MG/20 ML VIAL IV ONE ×2 (11:58→13:44)
--- NOTE | 2022-03-12 12:39 | Anesthesia Day of Surgery ---
Anesthesia Day of Surgery - Day of Surgery Patient Examined: Yes Patient H&P Reviewed: Yes Patient is NPO: Yes
--- NOTE | 2022-03-12 12:39 | Anesthesia Consultation ---
Anesthesia Consult and Med Hx Date of service: 03/12/22 - Airway Anesthetic Teeth Evaluation: Good ROM Head & Neck: Adequate Mental/Hyoid Distance: Adequate Mallampati Class: Class II - Pulmonary Exam CTA: Yes - Cardiac Exam Cardiac Exam: RRR - Pre-Operative Health Status ASA Pre-Surgery Classification: ASA1 Proposed Anesthetic Plan: MAC - Pulmonary Hx Smoking: No - Cardiovascular System Hx Hypertension: No Hx Cardia Arrhythmia: No - Central Nervous System Hx Neuromuscular Disorder: No - Gastrointestinal Hx Gastroesophageal Reflux Disease: No - Endocrine Hx Renal Disease: No Hx Liver Disease: No Hx Thyroid Disease: No - Hematic Hx Anemia: No - Other Systems Hx Alcohol Use: No - Additional Comments Anesthesia Medical History Comments: No previous anesthetic. No FHAC.
[2022-03-12] MEDS ORDERED: LIDOCAINE MPF (2%) 20 MG/1 ML VIAL 5 ML ONE (13:44)
--- NOTE | 2022-03-12 14:14 | Short Stay Summary ---
Short Stay Documentation Date of service: 03/12/22 Narrative H&P: 51-year-old woman, working in [employer] [facility], here for screening colonoscopy. Bowel movements are regular on a daily basis without any change. There is no abdominal pain, nausea, vomiting, or GI bleeding. There is no family history of colon cancer. There has been no weight loss. Patient denies chest pain or shortness of breath. - History Past Medical History: No medical history Past Surgical History: No surgical history Social history: no significant social history, no smoking, no alcohol abuse - Allergies and Medications Current Medications: Allergies carrot Allergy (Verified 09/13/20 07:16) Itching raw carrots Allergy (Uncoded 07/24/18 11:17) Swelling soy milk Allergy (Uncoded 07/24/18 11:17) Angioedema Home Medications Medication Instructions Recorded Confirmed Last Taken Type Albuterol Mdi (or & Nicu Only) 2 puff IH Q6H PRN #1 inhalation 06/04/18 Unknown Rx [ProAir HFA Inhaler] Pramoxine HCl/Calamine [Calamine 1 applic TP DAILY #1 lotion 09/16/19 Unknown Rx Medicated Lotion] Triamcinolone 0.1% [Kenalog 0.1% 1 applic TP TID #4 tube 09/16/19 Unknown Rx CREAM] Betamethasone/Propylene Glyc 1 gm TP BID #50 oint...g. 09/18/19 Unknown Rx [Diprolene 0.05% Ointment] Diphenoxylate/Atropine [Lomotil] 1 tab PO Q6H #7 tablet 09/13/20 Unknown Rx Cetirizine HCl [ZyrTEC] 10 mg PO DAILY #30 capsule 11/22/21 Unknown Rx Famotidine [Pepcid] 20 mg PO DAILY #30 tablet 11/22/21 Unknown Rx diphenhydrAMINE [Benadryl CAP] 25 mg PO Q8HR PRN #20 capsule 11/22/21 Unknown Rx methylPREDNISolone [Medrol 4MG 4 mg PO FS #1 tab.ds.pk 11/22/21 Unknown Rx DOSEPAK (21 tabs)] Active Medications Sodium Chloride (Nacl 0.9% 1000 Ml) 1,000 mls @ 50 mls/hr IV DIRECT MATTHEW - Physical exam General appearance: no acute distress HEENT: PERRLA, EOMI Lungs: Clear to auscultation Heart: Regular rate, Normal S1, Normal S2 Gastrointestinal: normal Rectal Exam: deferred Extremities: No edema - Brief post op/procedure progress note Date of procedure: 03/12/22 Pre-op diagnosis: Screening Post-op diagnosis: other (Normal colonoscopy) Anesthesia: MAC Findings: Visualized colonic mucosa is normal-appearing with no evidence of mass lesions, vascular lesions, or inflammation. Surgeon: TOMMY DON Estimated blood loss: none Pathology: none Condition: stable - Disposition Condition at discharge: Good Disposition: 01 HOME / SELF CARE / HOMELESS Short Stay Discharge Plan Diet: regular Follow up with: LALY KOHLER MD [Primary Care Provider] - 7 Days
--- NOTE | 2022-03-12 14:40 | Operative Report ---
DATE OF SURGERY: 03/12/2022 PREOPERATIVE DIAGNOSIS: Screening. POSTOPERATIVE DIAGNOSIS: Normal colonoscopy. PROCEDURE: Colonoscopy. SEDATION: MAC by anesthesia. HISTORY: The patient is a 51-year-old woman who presents for screening colonoscopy. Procedure, indications, risks, and benefits were explained and consent was obtained. DESCRIPTION OF PROCEDURE: The patient was placed in left lateral decubitus position and sedated. Colonoscope was passed through rectum after digital examination and passed with minimal difficulty to the cecum, which was identified by the ileocecal valve and appendiceal orifice. Scope was then gradually withdrawn with close inspection of mucosa. Prep was good. FINDINGS: Visualized colonic mucosa is normal appearing with no evidence of mass lesions, vascular lesions, or inflammation. There were no complications. IMPRESSION: Normal colonoscopy. RECOMMENDATIONS: Repeat colonoscopy for screening in 10 years. TID: [id number] RECEIPT: [id number] Cristian/BRENNAN/TAJ cc: Slade Bui MD
[2022-03-12 16:07] VITALS: BP 100/58
--- NOTE | 2022-03-12 16:08 | Post Anesthesia Evaluation ---
- Post Anesthesia Evaluation Patient Participated: Yes Airway Patent: Yes Stable Respiratory Function: Yes Nausea/Vomiting: No Temp > 96.8F: Yes Pain Manageable: Yes Adequeate Hydration: Yes Anesthesia Complications: No Block Receding Appropriately: Not Applicable Patient on Ventilator: No
== END 2022-03-12 14:40 | disposition home or self-care (01) ==
LOC: GIO 11:30
PROVIDERS: ATTEND Internal Medicine Gastroenterology
DX: Z12.11 Encounter for screening for malignant neoplasm of colon (principal); Z88.8 Allergy status to other drugs, medicaments and biological substances; Z79.899 Other long term (current) drug therapy; Z91.011 Allergy to milk products
CPT/HCPCS: 45378; J2704; J7030